=== PATIENT | female | born 1930 | race Caucasian/White ===

== ENCOUNTER 2017-05-23 15:22 | Inpatient (IN) | payer MEDICARE, BC ==
[2017-05-23 15:50] LABS: ADD MAN DIFF? NO
[2017-05-23 15:54] LABS: BASO # 0.1 x10^3/uL (0.0-0.2); BASO % 0 % (0-3); EOS % 0 % (0-3); HEMATOCRIT 37.9 % (36.0-47.0); HEMOGLOBIN 12.8 g/dL (12.0-15.5); LYMPH # 2.6 x10^3/uL (1.0-4.8); LYMPH % 21 % (24-48); MEAN CORPUSCULAR HEMOGLOBIN 30 pg (25-35); MEAN CORPUSCULAR HGB CONC 34 g/dL (31-37); MEAN CORPUSCULAR VOLUME 88 fL (79-100); MONO # 0.5 x10^3/uL (0.0-1.1); MONO % 4 % (0-9); NEUT # 9.4 x10^3uL (1.8-7.7); NEUT % 74 % (31-73); PLATELET COUNT 334 x10^3/uL (140-400); RED BLOOD COUNT 4.29 x10^6/uL (3.50-5.40); RED CELL DISTRIBUTION WIDTH 13.1 % (11.5-14.5); WHITE BLOOD COUNT 12.7 x10^3/uL (4.0-11.0)
[2017-05-23] MEDS: IV NORMAL SALINE 1000ML BAG 1,000 ML IV ×2 (15:57→20:29)
[2017-05-23] MEDS: ONDANSETRON PF 4 MG/2 ML VIAL. IV (15:58)
[2017-05-23 16:04] LABS: ANION GAP 11 (6-14); BLOOD UREA NITROGEN 12 mg/dL (7-20); BUN/CREATININE RATIO 10 (6-20); CARBON DIOXIDE 26 mmol/L (21-32); CHLORIDE 102 mmol/L (98-107); CREATININE 1.2 mg/dL (0.6-1.0); GFR 42.8; GLUCOSE 116 mg/dL (70-99); SODIUM 139 mmol/L (136-145)
[2017-05-23 16:10] LABS: ALBUMIN 3.8 g/dL (3.4-5.0); ALK PHOS 43 U/L (46-116); ALT (SGPT) 29 U/L (14-59); AST (SGOT) 25 U/L (15-37); LIPASE 102 U/L (73-393); TOTAL BILIRUBIN 0.4 mg/dL (0.2-1.0); TOTAL PROTEIN 7.6 g/dL (6.4-8.2)
[2017-05-23 16:15] LABS: TROPONINI < 0.017 ng/mL (0.000-0.055)
[2017-05-23] MEDS ORDERED: CONTRAST GIVEN MC (16:15)
[2017-05-23] MEDS: IOHEXOL 300 MG/ML 100ML VIAL. IV (16:15)
[2017-05-23] MEDS: METOCLOPRAMIDE HCL 10 MG/2 ML VIAL. IV (16:20)
[2017-05-23] MEDS: fentaNYL PF VIAL 100 MCG/2 ML VIAL IV (16:44)
[2017-05-23 17:58] LABS: BILIRUBIN,URINE NEGATIVE (NEG); CLARITY,URINE CLEAR; COLOR,URINE YELLOW; GLUCOSE,URINE NEGATIVE (NEG); NITRITE,URINE NEGATIVE (NEG); PROTEIN,URINE NEGATIVE (NEG-TRACE); UROBILINOGEN,URINE 0.2 mg/dL (0.2 mg/dL)
[2017-05-23] MEDS ORDERED: ACETAMINOPHEN 325 MG TABLET. PO (18:15)
[2017-05-23] MEDS ORDERED: fentaNYL PF VIAL 100 MCG/2 ML VIAL IV (18:15)
[2017-05-23] MEDS ORDERED: ONDANSETRON PF 4 MG/2 ML VIAL. IV (18:15)
[2017-05-23 18:18] LABS: BACTERIA,URINE FEW /HPF (0-FEW); SQUAMOUS EPITHELIAL CELL,UR OCC /LPF; WBC,URINE RARE /HPF (0-4)
[2017-05-24 05:44] LABS: ADD MAN DIFF? NO
[2017-05-24 05:56] LABS: BASO # 0.1 x10^3/uL (0.0-0.2); BASO % 1 % (0-3); EOS # 0.2 x10^3/uL (0.0-0.7); EOS % 2 % (0-3); HEMATOCRIT 35.2 % (36.0-47.0); HEMOGLOBIN 11.8 g/dL (12.0-15.5); LYMPH # 2.7 x10^3/uL (1.0-4.8); LYMPH % 24 % (24-48); MEAN CORPUSCULAR HEMOGLOBIN 30 pg (25-35); MEAN CORPUSCULAR HGB CONC 34 g/dL (31-37); MEAN CORPUSCULAR VOLUME 88 fL (79-100); MONO # 0.7 x10^3/uL (0.0-1.1); MONO % 6 % (0-9); NEUT # 7.6 x10^3uL (1.8-7.7); NEUT % 68 % (31-73); PLATELET COUNT 300 x10^3/uL (140-400); RED BLOOD COUNT 3.98 x10^6/uL (3.50-5.40); RED CELL DISTRIBUTION WIDTH 13.2 % (11.5-14.5); WHITE BLOOD COUNT 11.2 x10^3/uL (4.0-11.0)
[2017-05-24 06:21] LABS: ANION GAP 9 (6-14); BLOOD UREA NITROGEN 10 mg/dL (7-20); CALCIUM 8.5 mg/dL (8.5-10.1); CARBON DIOXIDE 24 mmol/L (21-32); CHLORIDE 109 mmol/L (98-107); GFR 52.8; GLUCOSE 100 mg/dL (70-99); POTASSIUM 3.8 mmol/L (3.5-5.1); SODIUM 142 mmol/L (136-145)
[2017-05-24] MEDS: IV NORMAL SALINE 1000ML BAG 1,000 ML IV (08:29)
[2017-05-24] MEDS: LEVOTHYROXINE 88 MCG TABLET PO (08:30)
[2017-05-24 21:12] LABS: C DIFF BY PCR Negative (Negative)
== END 2017-05-24 13:45 | disposition home or self-care (01) | DRG 392 ==
LOC: ER 15:22 → 4 NORTH 17:27
DX: A08.4 Viral intestinal infection, unspecified (principal); E86.0 Dehydration; E03.9 Hypothyroidism, unspecified; E78.00 Pure hypercholesterolemia, unspecified; E78.5 Hyperlipidemia, unspecified; I10 Essential (primary) hypertension; Z87.11 Personal history of peptic ulcer disease; Z90.49 Acquired absence of other specified parts of digestive tract; Z90.710 Acquired absence of both cervix and uterus; Z88.1 Allergy status to other antibiotic agents; Z88.8 Allergy status to other drugs, medicaments and biological substances
CPT/HCPCS: 36415; 51701; 74177; 80048; 80053; 81001; 83690; 84484; 85025; 87324; 93005; 96361; 96374; 96375; 99285; 99285-25; J2405; J2765; J3010; J7030

== ENCOUNTER → 2017-12-02 | Outpatient (CLI) | payer MEDICARE, BC ==
[2017-05-24 11:00] VITALS: BP 139/47
[~2017-12-02] MED LIST: CALC1TAB PO; CETI10TA16 PO; CITA20TA6 PO; IOHEXOL 180 MG/ML 10 ML VIAL. ONE; LACT1CAP8 PO; LEVO88TA2 PO; LIDOCAINE 2% PF 2ML VIAL. ONE; LISI-334 PO; MULT1TAB52 PO; PRAV20TA2 PO; TRAM50TA PO; TRIM100T13 PO; methylPREDNISolone ACETATE 40 MG/ML VIAL. ONE; methylPREDNISolone ACETATE 80 MG/ML VIAL. ONE
--- NOTE | 2017-12-02 23:20 | PAIN ---
DATE OF SERVICE: 12/02/2017 INITIAL CONSULTATION FOR PAIN CLINIC CHIEF COMPLAINT: Low back and right greater than left bilateral lower extremity pain. HISTORY OF PRESENT ILLNESS: This is an 87-year-old female who presents with history of pain in the low back and bilateral lower extremities again, worse on the right than the left, for many years, about 8 years or so, but worse over the past 6-7 months. The patient reports no specific injury or action she is aware of. Pain began to return in the low back, bilateral lower extremities, radiating in the posterior gluteus, posterior thighs, posterior calf and lateral calf; again worse on the right side with ambulation, standing, walking or changing positions. The patient reports it is a constant pain, becoming more tingling with numbness and radiating pain, burning and cramping in the low back as well as cramps and spasms in the legs. The patient reports it wakes her from sleep several times every night. It does not affect her bowel or bladder control or ability to walk. She is not using any assistive devices to ambulate. The patient reports she did have some epidural injections in about 2010, she believes, which did help the pain significantly and has not needed them since that time. The patient reports over the past 6-7 months, the pain has been returning fairly significantly, however. She did have an MRI scan in the past, in 2010, films showing L5-S1 very minimal bulge protrusion, more eccentric to the right lateral recess, contacting and descending in the right S1 nerve with [id number] narrowing of the right neural foramen and mild narrowing of the left neural foramen as well. The patient reports that she has tried physical therapy in the past. Still does exercises and walks daily and is very active. No formal other therapies, chiropractic treatments or physical therapy currently. The patient reports her disability rate from 0-10, 10 being the worst, it is a 5 with family and home responsibilities and social activity, 9 with recreation, 5 with self-care and 8 with life-support activities. PAST MEDICAL HISTORY: Significant for hypertension, osteoarthritis of the knees, blood transfusion and hypothyroidism. PAST SURGICAL HISTORY: Previous surgeries include anterior cervical diskectomy, appendectomy, bilateral cataract extraction, cholecystectomy and hysterectomy. CURRENT MEDICATIONS: Include multivitamins, cetirizine, tramadol, trimethoprim, lisinopril, levothyroxine and pravastatin. ALLERGIES: THE PATIENT IS ALLERGIC TO CEFTIN, AMPICILLIN AND ROPINIROLE. FAMILY HISTORY: Significant for heart disease, hypothyroidism, COPD and cancer. SOCIAL HISTORY: The patient does not drink alcohol, does not smoke and does not use any illegal, illicit or recreational drugs. He is and lives locally in [place], [place]. Reports that she is currently retired. REVIEW OF SYSTEMS: The patient's review of systems is positive for those items mentioned in the history of present illness. All systems reviewed and otherwise negative. It is complete, full and well documented on the patient's chart. PHYSICAL EXAMINATION: VITAL SIGNS: The patient's blood pressure is 128/77, pulse is 69, respirations 16 and temperature is 98.5 degrees Fahrenheit. Height is 5 feet 5 inches, weight is 139 pounds. GENERAL: The patient is awake, alert, oriented, appropriate, very pleasant demeanor. HEENT EXAMINATION: Shows normocephalic, atraumatic. Extraocular movements are intact and symmetrical. Oral cavity, mucous membranes are moist and pink. Dentition is intact. NECK: Shows anterior throat supple, without palpable lymphadenopathy noted. Swallow reflex is symmetrical. CHEST: Shows normal on inspection. Breath sounds are clear to auscultation bilaterally. HEART: Shows S1, S2 clear. No murmurs auscultated. ABDOMEN: Soft, nontender and nondistended. No palpable organomegaly is noted. No rebound or guarding demonstrated. BACK: Shows spine grossly in the midline. Normal-appearing thoracic kyphosis, some minor flattening of the lumbar lordotic curvature. Lumbar paraspinous muscle shows symmetrical on inspection. On palpation, it shows some mild tenderness, but only diffusely throughout the lumbar paraspinous muscles, only in the low lumbar distribution, without atrophy, hypertrophy, without asymmetry, without trigger points or radiation. No tenderness over the sacrum or sacroiliac regions. There is no tenderness over the spinous processes. The patient has good rotational motion of the lumbar spine, both laterally greater than 10 degrees right and left as well as extension greater than 10 degrees, forward flexion 45 degrees without pain reported. EXTREMITIES: Lower extremities show deep tendon reflexes at 2+ in the patellar, 1+ tendo calcaneus tendons. Motor exam is strong with 5/5 dorsiflexion, extension, quadriceps and hamstring flexion and are symmetrical. Peripheral pulses are 1+ posterior tibial. No peripheral edema is noted. Lower extremities are warm and dry to touch, equal in color and appearance. The patient has positive straight leg raise on the right at about 40 degrees, which is decreased with knee flexion; the left side is negative. Gaenslen's and Vinod's maneuvers are negative bilaterally as well. The patient is able to stand, stand on her toes without significant difficulty or loss of balance, walks with a normal-appearing gait for short distance in the office, not using any assistive devices, does not appear to favor the right or left lower extremity with ambulation. SKIN: Shows warm and dry, good turgor. No edema. No sores, rashes or bruising. IMPRESSION: 1. This is an 87-year-old female with 6- to 7-month history of increasing pain, low back and lower extremities in a radicular fashion, right greater than left. 2. MRI scan of lumbar spine as noted. 3. Hypertension. PLAN: Options were discussed with the patient including conservative medical management, physical therapy and interventional techniques. She would like to pursue interventional techniques. We discussed lumbar epidural steroid injection using description as well as anatomical models to describe the procedure. Risks were then discussed including, but not limited to bleeding, infection, possibility of epidural hematoma, subsequent neurologic compromise, dural puncture, headaches, spinal cord and/or nerve damage, side effects of steroid medication and poor results regarding pain control. The patient understands and wished to proceed. The patient will return to the clinic in approximately 2 weeks for followup. She was counseled on her return appointment, activity level and side effects to be aware of. DIAGNOSES: Lumbar radiculopathy with lumbar degenerative disk disease and lumbar herniated disk. PROCEDURE: Lumbar epidural steroid injection in a translaminar approach at L5-S1 level using C-arm fluoroscopic guidance under sterile prep and drape using local anesthetic. MEDICATION INJECTED: A total of 120 mg Depo-Medrol plus 10 mL of preservative-free normal saline and 2 mL of Isovue for contrast. CONDITION AT DISCHARGE: Stable. The patient tolerated the procedure well, had no complications. MITRA VALADEZ MD DR: RY/flora JOB#: [id number] / [id number] NITZA Jensen MD
== END | disposition home or self-care (01) ==
LOC: PNCL 09:47
PROVIDERS: ATTEND Anesthesiology
DX: M51.16 Intervertebral disc disorders with radiculopathy, lumbar region (principal); I10 Essential (primary) hypertension; M19.90 Unspecified osteoarthritis, unspecified site; E03.9 Hypothyroidism, unspecified; E78.00 Pure hypercholesterolemia, unspecified; Z98.42 Cataract extraction status, left eye; Z98.41 Cataract extraction status, right eye; Z98.890 Other specified postprocedural states; Z79.899 Other long term (current) drug therapy; Z90.49 Acquired absence of other specified parts of digestive tract; Z90.710 Acquired absence of both cervix and uterus; Z88.8 Allergy status to other drugs, medicaments and biological substances; Z88.1 Allergy status to other antibiotic agents; Z87.11 Personal history of peptic ulcer disease
CPT/HCPCS: 62323; J1030; J1040; J2001; Q9965

== ENCOUNTER → 2017-12-16 | Outpatient (CLI) | payer MEDICARE, BC ==
[2017-05-24 11:00] VITALS: BP 139/47
[~2017-12-16] MED LIST changes: +LIDOCAINE 1% PF 2 ML VIAL. ONE; -LIDOCAINE 2% PF 2ML VIAL. ONE
--- NOTE | 2017-12-16 22:19 | PAIN ---
DATE OF SERVICE: 12/16/2017 DIAGNOSES: Lumbar radiculopathy with lumbar degenerative disk disease and lumbar herniated disk. HISTORY OF PRESENT ILLNESS: The patient is an 87-year-old female who returns for followup status post lumbar epidural steroid injection x 1. The patient reports about 75% improvement, but only for about the first week or so. The patient reports the pain began to return in the low back, bilateral lower extremities, worse on the right than the left and posterior gluteus, posterior thigh, radiating to posterior lower leg, tingling, burning, cramping, worse with walking, standing, and change in positions. The patient reports that she was functioning very well for the first week or so, increasing ability of walking distances and household activities. The patient, although takes care of her , needs some assistance getting up and down from positions as well. The patient reports it has been awaking her from sleep once again over the past few days about every 4 hours. The patient reports no new motor or sensory deficits. No new bowel or bladder incontinence. Described the pain is an 8 on a scale of 10 at its worst, 7 on average, 7 at its least and is a 7 today. PHYSICAL EXAMINATION: VITAL SIGNS: The patient's blood pressure 138/72, pulse 81, respirations 16, temperature is 98.6 degrees Fahrenheit, height is 5 feet 5 inches, weight is 141 pounds. GENERAL: The patient is awake, alert, oriented, appropriate, very pleasant demeanor. HEENT: Shows normocephalic, atraumatic. Extraocular movements are intact and symmetrical. Oral cavity: Mucous membranes moist and pink. Dentition is intact. NECK: Shows anterior throat supple without palpable lymphadenopathy noted. Swallow reflex is symmetrical. CHEST: Shows normal on inspection. Breath sounds are clear to auscultation bilaterally. HEART: Shows S1, S2 clear. No murmurs auscultated. ABDOMEN: Soft, nontender, nondistended. No palpable organomegaly is noted. No rebound or guarding demonstrated. BACK: Shows spine grossly in the midline. Normal appearing thoracic kyphosis with minor flattening of lumbar lordotic curvature. Lumbar paraspinous muscle shows symmetrical on inspection. On palpation shows some moderate tenderness with palpation, but only diffusely without significant atrophy or hypertrophy. The patient has good rotational motion of lumbar spine both laterally as well as extension and flexion without significant tenderness. No tenderness over the sacrum or sacroiliac regions. EXTREMITIES: Lower extremities shows deep tendon reflexes 2+ in the patellar, 1+ tendo calcaneus tendons. Motor exam is strong with 5/5 dorsiflexion, extension, quadricep and hamstring flexion and equal. Peripheral pulses are 1+ posterior tibia. No peripheral edema is noted bilaterally. Options were discussed with the patient. The patient's old chart was reviewed as is her current medication regimen updated. Current review of systems is updated today as well. We will proceed with a lumbar epidural steroid injection today as second in this series. Risks were again discussed including, but not limited to bleeding, infection, possibility of epidural hematoma and subsequent neurological compromise, dural puncture, headaches, spinal cord and/or nerve damage, side effects of steroid medication and poor results regarding pain control. The patient understands and wished to proceed. The patient will return to the clinic in approximately 2 weeks for followup, was counseled on return appointment, activity level and side effects to be aware of. DIAGNOSES: Lumbar radiculopathy with lumbar degenerative disk disease, lumbar herniated disk. PROCEDURE: Lumbar epidural steroid injection, translaminar approach at L5-S1 level using C-arm fluoroscopic guidance under sterile prep and drape using local anesthetic. MEDICATION INJECTED: A total of 120 mg Depo-Medrol plus 10 mL preservative-free normal saline and 2 mL of Isovue for contrast. CONDITION ON DISCHARGE: Stable. The patient tolerated the procedure well, had no complications. MITRA VALADEZ MD DR: RY/flora JOB#: [id number] / [id number]
== END | disposition home or self-care (01) ==
LOC: PNCL 09:49
PROVIDERS: ATTEND Anesthesiology
DX: M51.16 Intervertebral disc disorders with radiculopathy, lumbar region (principal); Z88.1 Allergy status to other antibiotic agents; Z88.8 Allergy status to other drugs, medicaments and biological substances
CPT/HCPCS: 62323; J1030; J1040; Q9965

== ENCOUNTER → 2017-12-30 | Outpatient (CLI) | payer MEDICARE, BC ==
[2017-05-24 11:00] VITALS: BP 139/47
[~2017-12-30] MED LIST changes: -LIDOCAINE 1% PF 2 ML VIAL. ONE
--- NOTE | 2017-12-30 21:17 | PAIN ---
DATE OF SERVICE: 12/30/2017 PROGRESS NOTE FOR PAIN CLINIC DIAGNOSES: Lumbar radiculopathy with lumbar degenerative disk disease and lumbar herniated disk. HISTORY OF PRESENT ILLNESS: The patient is an 87-year-old female who returns for followup status post lumbar epidural steroid injection x 2. The patient reports about 70% improvement overall, still some pain in the low back and left greater than right lower extremity. The patient reports she has been increasing her activity with greater ease and comfort; however, sleeping well at night and does not awaken her from sleep, very often, has some cramping in the legs but otherwise doing quite well. The patient reports her pain is 3 on a scale of 10 at its worst, average and at its least and is a 3 today. The patient reports it is tingling, burning, cramping, some shooting pain in the lower extremities, much better but the cramping and burning in sensation in the feet, especially on the left foot now, which is her main complaint although the back and legs are doing much better. The patient reports no new motor or sensory deficits. She has been increasing her activity with greater ease and comfort, doing yoga, walking, standing with much better duration and doing household activities as well as traveling with much greater ease and comfort. The patient reports no new motor or sensory deficits and no new bowel or bladder incontinence or other complaints. PHYSICAL EXAMINATION: VITAL SIGNS: The patient's blood pressure 154/90, pulse 84, respirations 18, temperature 98.4 degrees Fahrenheit, height is 5 feet 5 inches and weighs 139 pounds. GENERAL: The patient is awake, alert, oriented, appropriate and very pleasant demeanor. HEENT: Head shows normocephalic and atraumatic. Extraocular movements are intact and symmetrical. Oral cavity: Mucous membranes moist and pink. Dentition is intact. NECK: Shows anterior throat supple without palpable lymphadenopathy noted. Swallow reflex symmetrical. CHEST: Shows normal on inspection. Breath sounds clear to auscultation bilaterally. HEART: Shows S1 and S2 clear. No murmurs auscultated. ABDOMEN: Soft, nontender and nondistended. No palpable organomegaly is noted. No rebound or guarding demonstrated. BACK: Shows spine grossly in the midline. Normal-appearing thoracic kyphosis and lumbar lordotic curvature. Lumbar paraspinous muscle shows symmetrical on inspection but palpation shows some [id number] tenderness only diffusely with palpation bilaterally. No tenderness over the sacrum or sacroiliac regions. The patient has good rotational motion of the lumbar spine, both laterally as well as extension and flexion without difficulty. EXTREMITIES: Lower extremities show deep tendon reflexes at 2+ in the patellar and tendo-calcaneus tendons are 1+. Motor exam is strong with 5/5 dorsiflexion, extension, quadriceps and hamstring flexion and symmetrical. Peripheral pulses are 1+, posterior tibia. No peripheral edema is noted bilaterally. Options were discussed with the patient. The patient's old chart was reviewed as well as her current medication regimen updated. Current review of systems updated today as well. We will proceed with a third in the series of lumbar epidural steroid injection today with fluoroscopic guidance. Risks were again discussed including, but not limited to bleeding, infection, possibility of epidural hematoma and subsequent neurological compromise, dural puncture, headaches, spinal cord and/or nerve damage, side effects of steroid medication and poor results regarding pain control. The patient understands and wished to proceed. The patient will return to the clinic in approximately 2 weeks for followup, was counseled as to return appointment, activity level and side effects to be aware of. DIAGNOSES: Lumbar radiculopathy with lumbar degenerative disk disease and lumbar herniated disk. PROCEDURE: Lumbar epidural steroid injection, translaminar approach, L5-S1 level using C-arm fluoroscopic guidance under sterile prep and drape using local anesthetic. MEDICATION INJECTED: A total of 120 mg Depo-Medrol plus 10 mL of preservative-free normal saline and 2 mL of Isovue for contrast. CONDITION AT DISCHARGE: Stable. The patient tolerated the procedure well and had no complications. MITRA VALADEZ MD DR: RY/flora JOB#: [id number] / [id number]
== END | disposition home or self-care (01) ==
LOC: PNCL 09:52
PROVIDERS: ATTEND Anesthesiology
DX: M51.16 Intervertebral disc disorders with radiculopathy, lumbar region (principal); Z88.1 Allergy status to other antibiotic agents; Z88.8 Allergy status to other drugs, medicaments and biological substances
CPT/HCPCS: 62323; J1030; J1040; Q9965